=== PATIENT | female | born 1995 ===

== ENCOUNTER 2017-04-02 18:59 | Emergency (ER) | payer MEDICAID ==
--- NOTE | 2017-04-02 19:30 | ED PDOC ---
HPI: Abdomen Time Seen by Provider: 04/02/17 19:28 Chief Complaint (Nursing): GI Problem Chief Complaint (Provider): Abdominal pain, vomiting and diarrhea. History Per: Patient Additional Complaint(s): 21-year-old female with no past medical history presents to emergency department with diffuse abdominal pain, vomiting and diarrhea status post eating meat last night while intoxicated. Patient has been a vegetarian for 18 months and last night she was intoxicated and ate meat while intoxicated. Shortly after eating the meat patient became sick with diarrhea and vomiting. Patient rates abdominal pain as a 7 out of 10 and she states it feels like cramping pain. No associated fever or chills. Past Medical History Reviewed: Historical Data, Nursing Documentation, Vital Signs Vital Signs: Last Vital Signs Temp 98.1 F 04/02/17 19:08 Pulse 68 04/02/17 19:08 Resp 18 04/02/17 19:08 BP 116/75 04/02/17 19:08 Pulse Ox 100 04/02/17 19:34 - Medical History PMH: No Chronic Diseases - Surgical History Other surgeries: Ear tubes as child, removal of glass from left foot - Family History Family History: States: No Known Family Hx - Living Arrangements Living Arrangements: With Family - Social History Current smoker - smoking cessation education provided: No Alcohol: Social Drugs: Denies - Home Medications Home Medications: Ambulatory Orders Medication Instructions Recorded Aluminum Hydroxide/Magnesium H 30 ml PO Q8 #6 oz 11/21/14 [Maalox 30 ml] Amoxicillin/Potassium Clav 1 tab PO TID #30 tab 11/21/14 [Augmentin 500 mg-125 mg] DiphenhydrAMINE [Diphenhydramine 12.5 mg PO Q8H #50 ml 11/21/14 HCl] Naproxen [Naprosyn] 500 mg PO Q12H #20 tab 11/21/14 Amoxicillin/Clavulanate Pota 1 tab PO BID #20 tab 01/14/15 [Augmentin 875 mg-125 mg] Ondansetron [Zofran Odt] 4 mg PO Q4H PRN #20 odt 02/07/15 Doxycycline Hyclate 100 mg PO BID #28 cap 02/19/15 traMADol [Ultram] 50 mg PO TID PRN #16 tab 02/19/15 Amoxicillin 500 mg PO BID #14 cap 11/01/15 Amoxicillin 500 mg PO TID #30 tablet 04/19/16 Naproxen [Naprosyn] 500 mg PO BID PRN #20 tablet 04/19/16 Fluticasone Propionate [Flonase] 2 spr NS DAILY PRN #1 bottle 04/27/16 Ofloxacin Otic 0.3% [Floxin 0.3% 5 drop BID #1 bottle 04/27/16 Otic Soln] Amoxicillin/Clavulanate [Augmentin 1 tab PO BID #14 tab 07/23/16 875 MG-125 MG] Ciprofloxacin/Dexamethasone 4 drop TOP ASDIR #1 bottle 07/23/16 [Ciprodex Otic] - Allergies Allergies/Adverse Reactions: Allergies Allergy/AdvReac Type Severity Reaction Status Date / Time No Known Allergies Allergy Verified 04/27/16 10:50 Review of Systems ROS Statement: Except As Marked, All Systems Reviewed And Found Negative Constitutional: Negative for: Fever, Chills Cardiovascular: Negative for: Chest Pain Respiratory: Negative for: Cough Gastrointestinal: Positive for: Nausea, Vomiting, Abdominal Pain, Diarrhea. Negative for: Constipation, Melena, Hematochezia, Hematemesis, Rectal Pain Genitourinary Female: Negative for: Dysuria Physical Exam - Reviewed Nursing Documentation Reviewed: Yes Vital Signs Reviewed: Yes - Physical Exam Appears: Positive for: Well, Non-toxic, No Acute Distress Skin: Negative for: Rash Eye Exam: Positive for: Normal appearance, EOMI, PERRL Cardiovascular/Chest: Positive for: Regular Rate, Rhythm Respiratory: Positive for: Normal Breath Sounds. Negative for: Wheezing, Respiratory Distress Gastrointestinal/Abdominal: Positive for: Soft, Tenderness (minimal tenderness, no rebound or guarding, normoactive bowel sounds in all 4 quadrants) Back: Negative for: L CVA Tenderness, R CVA Tenderness, Vertebral Tenderness Extremity: Negative for: Pedal Edema Neurologic/Psych: Positive for: Alert, Oriented - ECG O2 Sat by Pulse Oximetry: 100 Pulse Ox Interpretation: Normal Medical Decision Making Medical Decision Makin21 year old female with abdominal pain, vomiting and diarrhea Plan: Urine test Urine dip CBC CMP Lipase IV fluids IV Zofran IV toradol PO bentyl Disposition - Clinical Impression Clinical Impression: Abdominal pain, Gastroenteritis - Patient ED Disposition Is Patient to be Admitted: Transfer of Care - Disposition Disposition: Transfer of Care Disposition Time: 19:34 Condition: FAIR Patient Signed Over To: Babs Brock Handoff Comments: Case signed out to TRAVIS Brock pending diagnostic testing results and final dispo.
[2017-04-02] MEDS ORDERED: Sodium Chloride 0.9% 1,000 ML IV STA (19:33)
[2017-04-02 20:20] LABS: BASO # 0.1 K/uL (0.0-0.2); BASO % 0.6 % (0.0-2.0); EOS # 0.2 K/uL (0.0-0.7); EOS % 2.1 % (0.0-4.0); HEMOGLOBIN 11.7 g/dL (12.0-16.0); LYMPH % 18.7 % (20.0-40.0); MEAN CELL VOLUME 88.7 fl (81.0-99.0); MEAN CORPUSCULAR HEMOGLOBIN 28.9 pg (27.0-31.0); MEAN CORPUSCULAR HGB CONC 32.5 g/dL (33.0-37.0); MEAN PLATELET VOLUME 12.1 fl (7.2-11.7); MONO # 0.6 K/uL (0.0-0.8); MONO % 5.7 % (0.0-10.0); NEUT # 7.9 K/uL (1.8-7.0); NEUT % 72.9 % (50.0-75.0); RBC 4.07 Mil/uL (3.80-5.20); RED CELL DISTRIBUTION WIDTH 13.5 % (11.5-14.5); WHITE BLOOD COUNT 10.9 K/uL (4.8-10.8)
[2017-04-02 20:28] LABS: SQUAMOUS EPITHIAL 2 /hpf (0-5); URINE BACTERIA RARE (<OCC); URINE BILIRUBIN NEGATIVE (NEGATIVE); URINE BLOOD LARGE (NEGATIVE); URINE CLARITY CLEAR (Clear); URINE COLOR COLORLESS (YELLOW); URINE GLUCOSE (UA) NEG (Normal); URINE LEUKOCYTE ESTERASE SMALL Leu/uL (Negative); URINE NITRATE NEGATIVE (NEGATIVE); URINE PROTEIN NEGATIVE (NEGATIVE); URINE UROBILINOGEN 0.2-1.0 mg/dL (0.2-1.0)
[2017-04-02 20:39] LABS: ALB/GLOB RATIO 1.5 (1.0-2.1); ALBUMIN 4.2 g/dL (3.5-5.0); ALT/SGPT 36 U/L (9-52); AST/SGOT 24 U/L (14-36); BLOOD UREA NITROGEN 20 mg/dl (7-17); CALCIUM 9.5 mg/dL (8.4-10.2); GFR AFRICAN-AMERICAN > 60; GFR NON-AFRICAN AMERICAN > 60; LIPASE 88 U/L (23-300)
--- NOTE | 2017-04-02 21:57 | ED PDOC ---
- Laboratory Results Result Diagrams: 04/02/17 19:50 04/02/17 19:50 - ECG O2 Sat by Pulse Oximetry: 100 - Progress ED Course And Treament: Case endorsed to jingle writer from [facility] pending labs, re-eval 21:50 Patient states she is feeling slightly better, tolerating PO and would like to go home. Patient educated on findings, discharged with rx Zofran bentyl Advised fluids, bland diet. Followup PMD 2-3 days. Return to ED for worsening/concerning symptoms. Disposition - Clinical Impression Clinical Impression: Abdominal pain, Gastroenteritis - POA Present On Arrival: None - Disposition Disposition: Routine/Home Disposition Time: 21:56 Condition: IMPROVED Prescriptions: Dicyclomine [Bentyl] 20 mg PO TID #15 tab Ondansetron ODT [Zofran ODT] 4 mg PO Q8 PRN #10 odt PRN Reason: Nausea/Vomiting Instructions: Gastroenteritis (ED)
[2017-04-02 22:02] VITALS: BP 110/56; PULSE 50; RESP 14; TEMP 98.7; O2SAT 99
== END 2017-04-02 22:07 | disposition home or self-care (01) ==
LOC: H.ER 18:59
DX: K52.9 Noninfective gastroenteritis and colitis, unspecified (principal); R10.9 Unspecified abdominal pain

== ENCOUNTER 2017-07-24 01:58 | Emergency (ER) | payer MEDICAID ==
[2017-07-24 02:08] VITALS: BP 114/76; PULSE 81; RESP 18; TEMP 97.6; O2SAT 98
== END 2017-07-24 02:15 | disposition left against medical advice (07) ==
LOC: H.ER 01:58
DX: Z02.89 Encounter for other administrative examinations (principal)

== ENCOUNTER 2018-05-03 15:56 | Emergency (ER) | payer MEDICAID ==
[2018-05-03] MEDS ORDERED: Rabies Immune Globulin 150 INTLU/ML VIAL IM ONE (16:17)
[2018-05-03] MEDS ORDERED: Amoxicillin-Clav 875-125 mg Tab PO STA (16:17)
--- NOTE | 2018-05-03 16:30 | ED PDOC ---
HPI: Skin/Bite Injury Time Seen by Provider: 05/03/18 16:04 Chief Complaint (Nursing): Bite Chief Complaint (Provider): Bite / Scratches History Per: Patient History/Exam Limitations: no limitations Onset/Duration Of Symptoms: Mins (prior to arrival) Current Symptoms Are (Timing): Still Present Additional Complaint(s): 22 year old female presents to the ED for evaluation of right wrist and forearm injury. Patient reports that just prior to arrival, her cat got loose and was in an altercation with a stray cat. She states that while trying to pull her own cat away, the stray cat bit and scratched her forearm and wrist, and now has localized pain to the areas. Patient presumes that the stray cat is not domesticated. She offers no other complaints at this time. Right hand dominant. Tetanus up to date. PMD: Lars Gallo - Animal Bite Description Of The Animal: Stray Animal's Immunization Status: Unknown Past Medical History Reviewed: Historical Data, Nursing Documentation, Vital Signs Vital Signs: Last Vital Signs Temp 98 F 05/03/18 18:42 Pulse 78 05/03/18 18:42 Resp 18 05/03/18 18:42 BP 118/70 05/03/18 18:42 Pulse Ox 100 05/03/18 18:42 - Medical History PMH: Asthma - Surgical History Surgical History: No Surg Hx - Family History Family History: States: Unknown Family Hx - Social History Current smoker - smoking cessation education provided: No Alcohol: None Drugs: Denies - Immunization History Hx Tetanus Toxoid Vaccination: Yes - Home Medications Home Medications: Ambulatory Orders Medication Instructions Recorded Aluminum Hydroxide/Magnesium H 30 ml PO Q8 #6 oz 11/21/14 [Maalox 30 ml] Amoxicillin/Potassium Clav 1 tab PO TID #30 tab 11/21/14 [Augmentin 500 mg-125 mg] DiphenhydrAMINE [Diphenhydramine 12.5 mg PO Q8H #50 ml 11/21/14 HCl] Naproxen [Naprosyn] 500 mg PO Q12H #20 tab 11/21/14 Amoxicillin/Clavulanate Pota 1 tab PO BID #20 tab 01/14/15 [Augmentin 875 mg-125 mg] Ondansetron [Zofran Odt] 4 mg PO Q4H PRN #20 odt 02/07/15 Doxycycline Hyclate 100 mg PO BID #28 cap 02/19/15 traMADol [Ultram] 50 mg PO TID PRN #16 tab 02/19/15 Amoxicillin 500 mg PO BID #14 cap 11/01/15 Amoxicillin 500 mg PO TID #30 tablet 04/19/16 Naproxen [Naprosyn] 500 mg PO BID PRN #20 tablet 04/19/16 Fluticasone Propionate [Flonase] 2 spr NS DAILY PRN #1 bottle 04/27/16 Ofloxacin Otic 0.3% [Floxin 0.3% 5 drop BID #1 bottle 04/27/16 Otic Soln] Amoxicillin/Clavulanate [Augmentin 1 tab PO BID #14 tab 07/23/16 875 MG-125 MG] Ciprofloxacin/Dexamethasone 4 drop TOP ASDIR #1 bottle 07/23/16 [Ciprodex Otic] Dicyclomine [Bentyl] 20 mg PO TID #15 tab 04/02/17 Ondansetron ODT [Zofran ODT] 4 mg PO Q8 PRN #10 odt 04/02/17 Amoxicillin/Clavulanate [Augmentin 1 tab PO BID #14 tab 05/03/18 875 MG-125 MG] Bacitracin OINT 1 applic TOP BID #1 tube 05/03/18 Naproxen 500 mg PO BID PRN #20 tab 05/03/18 - Allergies Allergies/Adverse Reactions: Allergies Allergy/AdvReac Type Severity Reaction Status Date / Time No Known Allergies Allergy Verified 07/24/17 02:08 Review of Systems ROS Statement: Except As Marked, All Systems Reviewed And Found Negative Skin: Positive for: Other (cat bites and scratches to right wrist and forearm with localized pain) Physical Exam - Reviewed Nursing Documentation Reviewed: Yes Vital Signs Reviewed: Yes - Physical Exam Comments: GENERAL APPEARANCE: Patient is awake, alert, oriented x 3, in no acute distress. NECK: Supple, FROM ENT: Mucus membranes moist. Airway patent, (-) stridor. SKIN: warm and dry. Two puncture wounds to distal dorsum right forearm, (+) mild surrounding ecchymosis (+) tenderness. 4 superficial scratch brennan to the distal dorsum and ventral right forearm, (-) active bleeding (-) tenderness (-) warmth (-) surrounding cellulitis PULMONARY: Lungs clear to auscultation bilaterally, no rhonchi, no wheezing, no wheezing. CARDIAC: regular rate and rhythm EXTREMITIES: no deformity, full range of motion; capillary refill and sensation intact. NEURO AND PSYCH: Mental status as above. Gait steady, speech clear. - ECG O2 Sat by Pulse Oximetry: 99 (RA) Pulse Ox Interpretation: Normal Medical Decision Making Medical Decision Making: Time: 1615 Initial Impression: cat bite, cat scratches Initial Plan: --Augmentin 1 tab PO --Bacitracin dressings to wounds s/p normal saline irrigation --Rabies Vaccine 2.5 units IM --Imogam 1227 intlu IM 1755 No reaction noted to rabies injection sites. On re-evaluation, patient offers no additional complaints. On exam, patient remains AAOx3, in no acute distress. On exam, neck is supple, lungs CTA, cardiac RRR, neuro exam shows no focal findings. VSS, stable for discharge. Educated on wound care. Diagnostic results d/w the patient in great detail. Dx of cat bite/scratches of forearm d/w the patient. Based on history, exam and diagnostic results plan will be for discharge and follow up as directed for completion of rabies vaccination series. Advised to take medication as prescribed. Return to the emergency room at any time for any new or worsening symptoms. Patient states she fully agrees with and understands discharge instructions. States that she agrees with the plan and disposition. Verbalized and repeated discharge instructions and plan. I have given the patient opportunity to ask any additional questions. Scribe Attestation: Documented by Jasmin Garland acting as a scribe for Brandi Chavez PA-C. Provider Scribe Attestation: All medical record entries made by the Scribe were at my direction and personally dictated by me. I have reviewed the chart and agree that the record accurately reflects my personal performance of the history, physical exam, medical decision making, and the department course for this patient. I have also personally directed, reviewed, and agree with the discharge instructions and disposition. Disposition - Clinical Impression Clinical Impression: Animal bite wound, Cat scratch of forearm, Need for rabies vaccination - Patient ED Disposition Is Patient to be Admitted: No Counseled Patient/Family Regarding: Studies Performed, Diagnosis, Need For Followup, Rx Given - Disposition Disposition: Routine/Home Disposition Time: 17:56 Condition: STABLE Additional Instructions: RETURN TO ED ON 05/06/18, 05/10/18, 05/17/18 TO COMPLETE RABIES VACCINE SERIES RETURN TO ED IMMEDIATELY WITH ANY NEW OR WORSENING SYMPTOMS. TAKE ANTIBIOTICS PRESCRIBED. KEEP WOUNDS CLEAN AND DRY. Prescriptions: Amoxicillin/Clavulanate [Augmentin 875 MG-125 MG] 1 tab PO BID #14 tab Bacitracin OINT 1 applic TOP BID #1 tube Naproxen 500 mg PO BID PRN #20 tab PRN Reason: Pain, Moderate (4-7) Instructions: Animal and Human Bites, Wound Care, Rabies Immune Globulin (Human ), Rabies Vaccine Forms: [employer] (Fijian) Print Language: BARBADIAN
[2018-05-03] MEDS ORDERED: Bacitracin 500 Units/gm Oint Foilpak UD ONE (16:40)
[2018-05-03] MEDS ORDERED: Amoxicillin-Clav 875-125 mg Tab PO ONE (16:40)
[2018-05-03] MEDS ORDERED: Bacitracin OINT 15GM TOP SCH (17:00)
[2018-05-03 18:43] VITALS: BP 118/70; PULSE 78; RESP 18; TEMP 98
[2018-05-03 22:23] VITALS: O2SAT 99
== END 2018-05-03 18:42 | disposition home or self-care (01) ==
LOC: H.ER 15:56
DX: S51.851A Open bite of right forearm, initial encounter (principal); W55.01XA Bitten by cat, initial encounter; W55.03XA Scratched by cat, initial encounter

== ENCOUNTER 2018-05-06 16:20 | Emergency (ER) | payer MEDICAID ==
[2018-05-06 16:26] VITALS: BP 109/65; PULSE 63; RESP 16; TEMP 98.5; O2SAT 97
--- NOTE | 2018-05-06 16:50 | ED PDOC ---
HPI: General Adult Time Seen by Provider: 05/06/18 16:50 Chief Complaint (Nursing): Rabies Vaccine Series Chief Complaint (Provider): rabies vaccine History Per: Patient Additional Complaint(s): 22 year old female presents for 2nd vaccine in rabies series. She sustained cat bite last week. Patient denies any reaction to first vaccine in series. She offers no other complaints at this time. PMD: none Past Medical History Reviewed: Historical Data, Nursing Documentation, Vital Signs Vital Signs: Last Vital Signs Temp 98.5 F 05/06/18 16:25 Pulse 63 05/06/18 16:25 Resp 16 05/06/18 16:25 BP 109/65 05/06/18 16:25 Pulse Ox 97 05/06/18 16:50 - Medical History PMH: Asthma - Family History Family History: States: No Known Family Hx - Living Arrangements Living Arrangements: With Family - Social History Current smoker - smoking cessation education provided: No Alcohol: None Drugs: Denies - Immunization History Hx Tetanus Toxoid Vaccination: Yes - Home Medications Home Medications: Ambulatory Orders Medication Instructions Recorded Aluminum Hydroxide/Magnesium H 30 ml PO Q8 #6 oz 11/21/14 [Maalox 30 ml] Amoxicillin/Potassium Clav 1 tab PO TID #30 tab 11/21/14 [Augmentin 500 mg-125 mg] DiphenhydrAMINE [Diphenhydramine 12.5 mg PO Q8H #50 ml 11/21/14 HCl] Naproxen [Naprosyn] 500 mg PO Q12H #20 tab 11/21/14 Amoxicillin/Clavulanate Pota 1 tab PO BID #20 tab 01/14/15 [Augmentin 875 mg-125 mg] Ondansetron [Zofran Odt] 4 mg PO Q4H PRN #20 odt 02/07/15 Doxycycline Hyclate 100 mg PO BID #28 cap 02/19/15 traMADol [Ultram] 50 mg PO TID PRN #16 tab 02/19/15 Amoxicillin 500 mg PO BID #14 cap 11/01/15 Amoxicillin 500 mg PO TID #30 tablet 04/19/16 Naproxen [Naprosyn] 500 mg PO BID PRN #20 tablet 04/19/16 Fluticasone Propionate [Flonase] 2 spr NS DAILY PRN #1 bottle 04/27/16 Ofloxacin Otic 0.3% [Floxin 0.3% 5 drop BID #1 bottle 04/27/16 Otic Soln] Amoxicillin/Clavulanate [Augmentin 1 tab PO BID #14 tab 07/23/16 875 MG-125 MG] Ciprofloxacin/Dexamethasone 4 drop TOP ASDIR #1 bottle 07/23/16 [Ciprodex Otic] Dicyclomine [Bentyl] 20 mg PO TID #15 tab 04/02/17 Ondansetron ODT [Zofran ODT] 4 mg PO Q8 PRN #10 odt 04/02/17 Amoxicillin/Clavulanate [Augmentin 1 tab PO BID #14 tab 05/03/18 875 MG-125 MG] Bacitracin OINT 1 applic TOP BID #1 tube 05/03/18 Naproxen 500 mg PO BID PRN #20 tab 05/03/18 - Allergies Allergies/Adverse Reactions: Allergies Allergy/AdvReac Type Severity Reaction Status Date / Time No Known Allergies Allergy Verified 07/24/17 02:08 Review of Systems ROS Statement: Except As Marked, All Systems Reviewed And Found Negative Constitutional: Negative for: Fever Respiratory: Negative for: Cough Gastrointestinal: Negative for: Nausea, Vomiting Physical Exam - Reviewed Nursing Documentation Reviewed: Yes Vital Signs Reviewed: Yes - Physical Exam Appears: Positive for: Well, Non-toxic, No Acute Distress Skin: Positive for: Normal Color. Negative for: Rash Eye Exam: Positive for: Normal appearance Cardiovascular/Chest: Positive for: Regular Rate, Rhythm Respiratory: Positive for: Normal Breath Sounds Extremity: Positive for: Other (Healing abrasions noted to right arm) Neurologic/Psych: Positive for: Alert, Oriented - ECG O2 Sat by Pulse Oximetry: 97 Pulse Ox Interpretation: Normal Medical Decision Making Medical Decision Makin22 year old here for rabies vaccine Plan: Rabies vaccine IM Patient was instructed to return according to rabies vaccine schedule. Disposition - Clinical Impression Clinical Impression: Need for rabies vaccination - Patient ED Disposition Is Patient to be Admitted: No Counseled Patient/Family Regarding: Need For Followup - Disposition Referrals: [facility] [Outside] Disposition: Routine/Home Disposition Time: 17:09 Condition: STABLE Additional Instructions: Return to ED for next vaccine as per schedule. Instructions: Rabies Vaccine Forms: [employer] (Zimbabwean)
== END 2018-05-06 17:35 | disposition home or self-care (01) ==
LOC: H.ER 16:20
DX: Z29.14 Encounter for prophylactic rabies immune globulin (principal)

== ENCOUNTER 2018-05-16 10:56 | Emergency (ER) | payer MEDICAID ==
--- NOTE | 2018-05-16 11:23 | ED PDOC ---
HPI: Abdomen Time Seen by Provider: 05/16/18 11:05 Chief Complaint (Nursing): Abdominal Pain Chief Complaint (Provider): Nasuea History Per: Patient Additional Complaint(s): 22 yo female, denies any PMH, presents to ED for evaluation of nausea and breast tenderness. Also reports sore throat, fatigue x 2 days now. Pt reports LMP was in February, pt took preg test in March which was negative. Pt has not repeated testing this month at all. Past Medical History Reviewed: Nursing Documentation, Vital Signs Vital Signs: Last Vital Signs Temp 98.7 F 05/16/18 11:18 Pulse 70 05/16/18 11:18 Resp 18 05/16/18 11:18 BP 103/64 05/16/18 11:18 Pulse Ox 99 05/16/18 11:23 - Medical History PMH: Asthma - Family History Family History: States: Unknown Family Hx - Living Arrangements Living Arrangements: With Family - Social History Current smoker - smoking cessation education provided: No Alcohol: Social Drugs: Denies - Immunization History Hx Tetanus Toxoid Vaccination: Yes - Home Medications Home Medications: Ambulatory Orders Medication Instructions Recorded Aluminum Hydroxide/Magnesium H 30 ml PO Q8 #6 oz 11/21/14 [Maalox 30 ml] Amoxicillin/Potassium Clav 1 tab PO TID #30 tab 11/21/14 [Augmentin 500 mg-125 mg] DiphenhydrAMINE [Diphenhydramine 12.5 mg PO Q8H #50 ml 11/21/14 HCl] Naproxen [Naprosyn] 500 mg PO Q12H #20 tab 11/21/14 Amoxicillin/Clavulanate Pota 1 tab PO BID #20 tab 01/14/15 [Augmentin 875 mg-125 mg] Ondansetron [Zofran Odt] 4 mg PO Q4H PRN #20 odt 02/07/15 Doxycycline Hyclate 100 mg PO BID #28 cap 02/19/15 traMADol [Ultram] 50 mg PO TID PRN #16 tab 02/19/15 Amoxicillin 500 mg PO BID #14 cap 11/01/15 Amoxicillin 500 mg PO TID #30 tablet 04/19/16 Naproxen [Naprosyn] 500 mg PO BID PRN #20 tablet 04/19/16 Fluticasone Propionate [Flonase] 2 spr NS DAILY PRN #1 bottle 04/27/16 Ofloxacin Otic 0.3% [Floxin 0.3% 5 drop BID #1 bottle 04/27/16 Otic Soln] Amoxicillin/Clavulanate [Augmentin 1 tab PO BID #14 tab 07/23/16 875 MG-125 MG] Ciprofloxacin/Dexamethasone 4 drop TOP ASDIR #1 bottle 07/23/16 [Ciprodex Otic] Dicyclomine [Bentyl] 20 mg PO TID #15 tab 04/02/17 Ondansetron ODT [Zofran ODT] 4 mg PO Q8 PRN #10 odt 04/02/17 Amoxicillin/Clavulanate [Augmentin 1 tab PO BID #14 tab 05/03/18 875 MG-125 MG] Bacitracin OINT 1 applic TOP BID #1 tube 05/03/18 Naproxen 500 mg PO BID PRN #20 tab 05/03/18 Ibuprofen [Motrin] 600 mg PO Q6 #20 tab 05/16/18 Ondansetron ODT [Zofran ODT] 4 mg PO Q6 PRN #10 odt 05/16/18 - Allergies Allergies/Adverse Reactions: Allergies Allergy/AdvReac Type Severity Reaction Status Date / Time No Known Allergies Allergy Verified 05/16/18 11:22 Review of Systems ROS Statement: Except As Marked, All Systems Reviewed And Found Negative ENT: Positive for: Throat Pain Gastrointestinal: Positive for: Nausea Physical Exam - Reviewed Nursing Documentation Reviewed: Yes Vital Signs Reviewed: Yes - Physical Exam Appears: Positive for: Well, Non-toxic, No Acute Distress Head Exam: Positive for: ATRAUMATIC, NORMAL INSPECTION, NORMOCEPHALIC Skin: Positive for: Normal Color, Warm, DRY Eye Exam: Positive for: EOMI, Normal appearance, PERRL ENT: Positive for: Normal ENT Inspection. Negative for: Pharyngeal Erythema, Tonsillar Exudate, Tonsillar Swelling Neck: Positive for: Normal, Painless ROM Cardiovascular/Chest: Positive for: Regular Rate, Rhythm Respiratory: Positive for: CNT, Normal Breath Sounds Gastrointestinal/Abdominal: Positive for: Normal Exam, Soft Back: Positive for: Normal Inspection Extremity: Positive for: Normal ROM Neurologic/Psych: Positive for: Alert, Oriented - ECG O2 Sat by Pulse Oximetry: 99 Medical Decision Making Medical Decision Making: Preg negtive Pt made aware of results Further diagnostics ordered;however, Pt refused labs and asked to leave ED. IVF started and Zorfan and Toradol adminsitered. Pt then asked to leave ED, reported feeling improved Disposition - Clinical Impression Clinical Impression: Viral syndrome - Patient ED Disposition Is Patient to be Admitted: No - Disposition Disposition: Routine/Home Disposition Time: 12:44 Condition: STABLE Prescriptions: Ibuprofen [Motrin] 600 mg PO Q6 #20 tab Ondansetron ODT [Zofran ODT] 4 mg PO Q6 PRN #10 odt PRN Reason: Nausea/Vomiting Instructions: Viral Syndrome (DC) Forms: [employer] (Maltese)
[2018-05-16] MEDS ORDERED: Sodium Chloride 0.9% 1,000 ML IV STA (11:40)
[2018-05-16 12:42] VITALS: BP 115/72; PULSE 74; RESP 16; TEMP 98.6
[2018-05-16 12:44] VITALS: O2SAT 99
== END 2018-05-16 12:42 | disposition home or self-care (01) ==
LOC: H.ER 10:56
DX: B34.9 Viral infection, unspecified (principal)
CPT/HCPCS: 81025; 96360; 96374; 99284; J1885; J2405; J7030

== ENCOUNTER 2018-09-01 18:39 | Emergency (ER) | payer MEDICAID ==
[2018-09-01 18:53] VITALS: RESP 18
--- NOTE | 2018-09-01 19:13 | ED PDOC ---
HPI: Skin/Bite Injury Time Seen by Provider: 09/01/18 19:00 Chief Complaint (Nursing): Bite Chief Complaint (Provider): Bite History Per: Patient History/Exam Limitations: no limitations Onset/Duration Of Symptoms: Days (x 1) Current Symptoms Are (Timing): Still Present Location Of Injury: Right: Ankle Quality Of Symptoms: Painful, Swollen Additional Complaint(s): 23 year old female presents to the ED with right ankle pain and swelling after she was bitten and scratched prior to arrival while attempting to rescue a stray cat. The cat was released. Patient was seen in this ED for similar symptoms in April of this year and only completed 2/4 rabies shots. Tetanus vaccination UTD. PMD: Dr. Marifer Perez - Animal Bite Description Of The Attack: Tried To Pet Animal Description Of The Animal: Stray Animal Appears: Unknown Animal's Immunization Status: Unknown Past Medical History Reviewed: Historical Data, Nursing Documentation, Vital Signs Vital Signs: Last Vital Signs Temp 99.2 F 09/01/18 18:47 Pulse 66 09/01/18 18:47 Resp 18 09/01/18 18:47 BP 122/62 09/01/18 18:47 Pulse Ox 99 09/01/18 18:47 - Medical History PMH: Asthma - Surgical History Surgical History: No Surg Hx - Family History Family History: States: Unknown Family Hx - Immunization History Hx Tetanus Toxoid Vaccination: Yes - Home Medications Home Medications: Ambulatory Orders Medication Instructions Recorded Aluminum Hydroxide/Magnesium H 30 ml PO Q8 #6 oz 11/21/14 [Maalox 30 ml] Amoxicillin/Potassium Clav 1 tab PO TID #30 tab 11/21/14 [Augmentin 500 mg-125 mg] DiphenhydrAMINE [Diphenhydramine 12.5 mg PO Q8H #50 ml 11/21/14 HCl] Naproxen [Naprosyn] 500 mg PO Q12H #20 tab 11/21/14 Amoxicillin/Clavulanate Pota 1 tab PO BID #20 tab 01/14/15 [Augmentin 875 mg-125 mg] Ondansetron [Zofran Odt] 4 mg PO Q4H PRN #20 odt 02/07/15 Doxycycline Hyclate 100 mg PO BID #28 cap 02/19/15 traMADol [Ultram] 50 mg PO TID PRN #16 tab 02/19/15 Amoxicillin 500 mg PO BID #14 cap 11/01/15 Amoxicillin 500 mg PO TID #30 tablet 04/19/16 Naproxen [Naprosyn] 500 mg PO BID PRN #20 tablet 04/19/16 Fluticasone Propionate [Flonase] 2 spr NS DAILY PRN #1 bottle 04/27/16 Ofloxacin Otic 0.3% [Floxin 0.3% 5 drop BID #1 bottle 04/27/16 Otic Soln] Amoxicillin/Clavulanate [Augmentin 1 tab PO BID #14 tab 07/23/16 875 MG-125 MG] Ciprofloxacin/Dexamethasone 4 drop TOP ASDIR #1 bottle 07/23/16 [Ciprodex Otic] Dicyclomine [Bentyl] 20 mg PO TID #15 tab 04/02/17 Ondansetron ODT [Zofran ODT] 4 mg PO Q8 PRN #10 odt 04/02/17 Amoxicillin/Clavulanate [Augmentin 1 tab PO BID #14 tab 05/03/18 875 MG-125 MG] Bacitracin OINT 1 applic TOP BID #1 tube 05/03/18 Naproxen 500 mg PO BID PRN #20 tab 05/03/18 Ibuprofen [Motrin] 600 mg PO Q6 #20 tab 05/16/18 Ondansetron ODT [Zofran ODT] 4 mg PO Q6 PRN #10 odt 05/16/18 Amoxicillin/Clavulanate [Augmentin 1 tab PO BID #14 tab 09/01/18 875 MG-125 MG] - Allergies Allergies/Adverse Reactions: Allergies Allergy/AdvReac Type Severity Reaction Status Date / Time No Known Allergies Allergy Verified 05/16/18 11:22 Review of Systems ROS Statement: Except As Marked, All Systems Reviewed And Found Negative Musculoskeletal: Positive for: Foot Pain (right ankle pain and swelling; puncture wound noted) Physical Exam - Reviewed Nursing Documentation Reviewed: Yes Vital Signs Reviewed: Yes - Physical Exam Appears: Positive for: Non-toxic, No Acute Distress Head Exam: Positive for: ATRAUMATIC, NORMAL INSPECTION, NORMOCEPHALIC Skin: Positive for: Normal Color, Warm, Dry Cardiovascular/Chest: Positive for: Regular Rate, Rhythm Respiratory: Positive for: Normal Breath Sounds Extremity: Positive for: Normal ROM (upper and lower extremities), Other (punctate lesions noted in medial and lateral aspect of ankle with 2 cm of mild erythema noted on lateral aspect. ). Negative for: Deformity Neurologic/Psych: Positive for: Alert, Oriented. Negative for: Motor/Sensory Deficits - Laboratory Results Result Diagrams: 09/01/18 19:37 09/01/18 19:37 - ECG O2 Sat by Pulse Oximetry: 99 (RA) Pulse Ox Interpretation: Normal - Progress ED Course And Treament: RETURN TO ED IN 24-48 HOURS FOR EVALUATION OF RIGHT ANKLE WOUND. RETURN DAY 3 August FOR VACCINE #2 RETURN DAY 7 August FOR VACCINE # 3 RETURN DAY 14 August FOR VACCINE #4 Medical Decision Making Medical Decision Makin:02 Initial Plan: --VBG --BMP --CBC --Unasyn 3 gm in 100 ml IVPB --Toradol 15 mg IVP --Blood cx --Right ankle x-ray Scribe Attestation: Documented by Mirela Jackman, acting as a scribe for Shauna Tran PA-C Provider Scribe Attestation: All medical record entries made by the Scribe were at my direction and personally dictated by me. I have reviewed the chart and agree that the record accurately reflects my personal performance of the history, physical exam, medical decision making, and the department course for this patient. I have also personally directed, reviewed, and agree with the discharge instructions and disposition. Disposition - Clinical Impression Clinical Impression: Animal bite wound, Need for rabies vaccination - Patient ED Disposition Is Patient to be Admitted: No - Disposition Disposition: Routine/Home Disposition Time: 21:46 Condition: FAIR Prescriptions: Amoxicillin/Clavulanate [Augmentin 875 MG-125 MG] 1 tab PO BID #14 tab Instructions: Animal and Human Bites, Rabies Vaccine Forms: [facility] ED School/Work Excuse
[2018-09-01 19:44] LABS: VENOUS BLOOD GAS BASE EXCESS 2.8 mmol/L (0.0-2.0); VENOUS BLOOD GAS PCO2 52 mmHg (40-60); VENOUS BLOOD GAS PO2 18 mm/Hg (30-55); VENOUS BLOOD PH 7.36 (7.32-7.43)
[2018-09-01 19:46] LABS: BASO # 0.1 K/uL (0.0-0.2); BASO % 0.7 % (0.0-2.0); EOS # 0.2 K/uL (0.0-0.7); EOS % 1.6 % (0.0-4.0); HEMOGLOBIN 12.7 g/dL (12.0-16.0); LYMPH # 1.9 K/uL (1.0-4.3); LYMPH % 14.3 % (20.0-40.0); MEAN CELL VOLUME 88.8 fl (81.0-99.0); MEAN CORPUSCULAR HEMOGLOBIN 29.1 pg (27.0-31.0); MEAN CORPUSCULAR HGB CONC 32.8 g/dL (33.0-37.0); MONO # 0.7 K/uL (0.0-0.8); MONO % 4.9 % (0.0-10.0); NEUT # 10.7 K/uL (1.8-7.0); NEUT % 78.5 % (50.0-75.0); RBC 4.35 Mil/uL (3.80-5.20); RED CELL DISTRIBUTION WIDTH 13.1 % (11.5-14.5); WHITE BLOOD COUNT 13.6 K/uL (4.8-10.8)
[2018-09-01 19:54] LABS: BLOOD UREA NITROGEN 24 mg/dl (7-17); CALCIUM 10.3 mg/dL (8.4-10.2); GFR NON-AFRICAN AMERICAN > 60
[2018-09-01] MEDS ORDERED: Rabies Immune Globulin 150 INTLU/ML VIAL IM STA (20:05)
[2018-09-01 22:21] VITALS: PULSE 81; TEMP 97.5; O2SAT 100
[2018-09-01 22:23] VITALS: BP 108/55
--- NOTE | 2018-09-02 12:51 | RAD ---
Date of service: 09/01/2018 PROCEDURE: Bilateral Ankle Radiographs. HISTORY: ANKLE INJURY/CAT BITE COMPARISON: None available. FINDINGS: BONES: Right Ankle: Normal. No fracture. Left Ankle: Normal. No fracture. JOINTS: Right Ankle: Normal. No osteoarthritis. Ankle mortise maintained. Talar dome intact. Left Ankle: Normal. No osteoarthritis. Ankle mortise maintained. Talar dome intact. SOFT TISSUES: Right Ankle: Normal. Left Ankle: Normal. OTHER FINDINGS: None. IMPRESSION: Normal bilateral ankle radiographs.
== END 2018-09-01 22:25 | disposition home or self-care (01) ==
LOC: H.ER 18:39
DX: S91.051A Open bite, right ankle, initial encounter (principal); W55.01XA Bitten by cat, initial encounter; J45.909 Unspecified asthma, uncomplicated; Z23 Encounter for immunization
CPT/HCPCS: 73610; 80048; 82803; 85025; 87040; 90375; 90471; 90675; 96365; 96372; 96375; 99284; J0295; J1885

== ENCOUNTER 2018-09-04 13:16 | Emergency (ER) | payer MEDICAID ==
[2018-09-04 13:26] VITALS: BP 112/66; PULSE 63; RESP 16; TEMP 97; O2SAT 100
--- NOTE | 2018-09-04 13:28 | ED PDOC ---
HPI: General Adult Time Seen by Provider: 09/04/18 13:27 Chief Complaint (Nursing): Rabies Vaccine Series Chief Complaint (Provider): rabies vaccine History Per: Patient Additional Complaint(s): 23-year-old female presents for rabies vaccine. Patient sustained cat bite a few days ago. She received first vaccination in series this past Saturday and reports no side effects. Patient offers no other complaints at this time. PMD: none Past Medical History Reviewed: Historical Data, Nursing Documentation, Vital Signs Vital Signs: Last Vital Signs Temp 97.0 F L 09/04/18 13:24 Pulse 63 09/04/18 13:24 Resp 16 09/04/18 13:24 BP 112/66 09/04/18 13:24 Pulse Ox 100 09/04/18 13:24 - Medical History PMH: Asthma - Family History Family History: States: No Known Family Hx - Living Arrangements Living Arrangements: With Family - Social History Current smoker - smoking cessation education provided: No Alcohol: None Drugs: Denies - Immunization History Hx Tetanus Toxoid Vaccination: Yes - Home Medications Home Medications: Ambulatory Orders Medication Instructions Recorded Aluminum Hydroxide/Magnesium H 30 ml PO Q8 #6 oz 11/21/14 [Maalox 30 ml] Amoxicillin/Potassium Clav 1 tab PO TID #30 tab 11/21/14 [Augmentin 500 mg-125 mg] DiphenhydrAMINE [Diphenhydramine 12.5 mg PO Q8H #50 ml 11/21/14 HCl] Naproxen [Naprosyn] 500 mg PO Q12H #20 tab 11/21/14 Amoxicillin/Clavulanate Pota 1 tab PO BID #20 tab 01/14/15 [Augmentin 875 mg-125 mg] Ondansetron [Zofran Odt] 4 mg PO Q4H PRN #20 odt 02/07/15 Doxycycline Hyclate 100 mg PO BID #28 cap 02/19/15 traMADol [Ultram] 50 mg PO TID PRN #16 tab 02/19/15 Amoxicillin 500 mg PO BID #14 cap 11/01/15 Amoxicillin 500 mg PO TID #30 tablet 04/19/16 Naproxen [Naprosyn] 500 mg PO BID PRN #20 tablet 04/19/16 Fluticasone Propionate [Flonase] 2 spr NS DAILY PRN #1 bottle 04/27/16 Ofloxacin Otic 0.3% [Floxin 0.3% 5 drop BID #1 bottle 04/27/16 Otic Soln] Amoxicillin/Clavulanate [Augmentin 1 tab PO BID #14 tab 07/23/16 875 MG-125 MG] Ciprofloxacin/Dexamethasone 4 drop TOP ASDIR #1 bottle 07/23/16 [Ciprodex Otic] Dicyclomine [Bentyl] 20 mg PO TID #15 tab 04/02/17 Ondansetron ODT [Zofran ODT] 4 mg PO Q8 PRN #10 odt 04/02/17 Amoxicillin/Clavulanate [Augmentin 1 tab PO BID #14 tab 05/03/18 875 MG-125 MG] Bacitracin OINT 1 applic TOP BID #1 tube 05/03/18 Naproxen 500 mg PO BID PRN #20 tab 05/03/18 Ibuprofen [Motrin] 600 mg PO Q6 #20 tab 05/16/18 Ondansetron ODT [Zofran ODT] 4 mg PO Q6 PRN #10 odt 05/16/18 Amoxicillin/Clavulanate [Augmentin 1 tab PO BID #14 tab 09/01/18 875 MG-125 MG] - Allergies Allergies/Adverse Reactions: Allergies Allergy/AdvReac Type Severity Reaction Status Date / Time No Known Allergies Allergy Verified 05/16/18 11:22 Review of Systems ROS Statement: Except As Marked, All Systems Reviewed And Found Negative Constitutional: Negative for: Fever Skin: Negative for: Rash Physical Exam - Reviewed Nursing Documentation Reviewed: Yes Vital Signs Reviewed: Yes - Physical Exam Appears: Positive for: Well, Non-toxic Head Exam: Positive for: ATRAUMATIC, NORMAL INSPECTION, NORMOCEPHALIC Skin: Positive for: Normal Color. Negative for: Rash Cardiovascular/Chest: Positive for: Regular Rate, Rhythm Respiratory: Positive for: Normal Breath Sounds. Negative for: Respiratory Distress Neurologic/Psych: Positive for: Alert, Oriented - ECG O2 Sat by Pulse Oximetry: 100 Pulse Ox Interpretation: Normal Medical Decision Making Medical Decision Makin23 y/o here for rabies vaccine She was instructed to return as per vaccination schedule. Disposition - Clinical Impression Clinical Impression: Need for rabies vaccination - Patient ED Disposition Is Patient to be Admitted: No - Disposition Referrals: [facility] [Outside] Disposition: Routine/Home Disposition Time: 14:24 Condition: STABLE Additional Instructions: Return to emergency room for next vaccination according to schedule. Instructions: Rabies Vaccine Forms: [facility] (Pashto)
== END 2018-09-04 14:25 | disposition home or self-care (01) ==
LOC: H.ER 13:16
DX: Z29.14 Encounter for prophylactic rabies immune globulin (principal)